=== PATIENT | female | born 1985 | race Caucasian/White ===

== ENCOUNTER → 2017-06-08 | Outpatient (CLI) | payer OTHER ==
[2017-06-08 16:04] LABS: HEMOGLOBIN 13.3 g/dL (12.2-16.2); LYMPH # 1.6 K/mm3 (0.7-4.5); LYMPH % 18.5 % (10-50.0)
[2017-06-08 19:03] LABS: AMPHETAMINES/METAMPHETAMINES NEGATIVE ng/mL (<1000)
[2017-06-08 23:19] LABS: ABO BLOOD TYPE A; RH BLOOD TYPE POSITIVE
[2017-06-10 16:39] LABS: HIV Screen 4th Generation wRfx Non Reactive (Non Reactive)
[2017-06-12 04:36] LABS: Rapid Plasma Reagin, Quant Non Reactive (NonRea<1:1)
[2017-06-12 08:43] LABS: Rubella Antibodies, IgG <0.90 index (Immune >0.99)
[2017-06-12 10:40] LABS: HBsAg Screen Negative (Negative)
== END ==
LOC: LAB 15:10
PROVIDERS: Obstetrics & Gynecology
DX: Z36 Encounter for antenatal screening of mother (principal); Z04.8 Encounter for examination and observation for other specified reasons
CPT/HCPCS: G0432

== ENCOUNTER → 2017-08-14 | Outpatient (CLI) | payer OTHER ==
[2017-08-17 19:15] LABS: AFP Value 43.2 ng/mL; Gest. Age on Collection Date 16.0 WEEKS; Gestat. Age Based On ULTRASOUND; Insulin Dep Diabetes NO; Maternal Age At EDD 30.5 YEARS; Results REPORT
[2017-08-17 19:16] LABS: DIA MoM 0.72; DIA Value 126.75 pg/mL; DSR (Second Trimester) 1 IN 10000; Interpretation SCREEN NEGATIVE; OSBR Risk 1 IN 3810; hCG MoM 1.76; hCG Value 67319 mIU/mL; uE3 MoM 1.71; uE3 Value 1.37 ng/mL
== END ==
LOC: LAB 09:50
PROVIDERS: Obstetrics & Gynecology
DX: Z36.89 Encounter for other specified antenatal screening (principal)

== ENCOUNTER 2017-08-19 09:34 | Emergency (ER) | payer OTHER, MEDICAID ==
[~2017-08-19] VITALS: Ht 162.6 cm; Wt 72.6 kg
[2017-08-19 09:51] LABS: URINE BILIRUBIN - DIPSTICK NEGATIVE (NEG); URINE BLOOD 1+ (NEG)
--- OUTSIDE RECORDS SUMMARY | 2017-08-19 09:51 | External Medical Summary Rpt | CCD ---
Author Author , FLORECITA BERNABE Address Unknown Phone [email or web address] Care Team Providers Care Photo Engraver Name Role Phone [employer] [place] [employer], Unavailable Unavailable [employer] KELLE CAR, KELLE Unavailable Unavailable CAR [facility] Unavailable Unavailable DEPARTMENT, [facility] DEPARTMENT [facility] Unavailable Unavailable DEPARTMENT, [facility] DEPARTMENT [facility] Unavailable Unavailable CENTER, [facility]available Unavailable [facility], [facility] Unavailable Unavailable [facility], [facility] BEATTIE HOP WORKER Unavailable Unavailable [facility], BEATTIE HOP WORKER [facility] WALLACE ADAMES, Unavailable Unavailable WALLACE ADAMES GLORIA KOKI, GLORIA Unavailable Unavailable [facility], [facility] Unavailable Unavailable CENTER, [facility] DRAPER GWE, DRAPER GWE Unavailable Unavailable DRAPER, MEI, DRAPER, Unavailable Unavailable MEI SERGIO GARCIA, Unavailable Unavailable SERGIO GARCIA Purpose Continuity of Care Document - 09-21-2009 through 2016 Problems Code Diagnosis DOS Provider Status V221 SUPERVISION 05-14-2013 KELLE CAR OF OTHER NORMAL 31709 MATERNAL 03-19-2013 DRAPER GWE ANEMIA, ANTEPARTUM V061 NEED PROPH 01-02-2013 GLORIA KOKI VAC W/COMB DIPHTH-TETA NUS-PERTUSS VAC 6989 UNSPECIFIED 12-17-2012 GLORIA KOKI PRURITIC DISORDER 37624 DEHYDRATION 11-20-2012 GLORIA KOKI 72745 NAUSEA WITH 11-14-2012 GLORIA KOKI VOMITING V825 SCREENING 11-01-2012 [facility] POISONING&O DEPARTMENT THER CONTAMINATI ON V220 SUPERVISION 10-29-2012 GLORIA KOKI OF NORMAL FIRST V2511 ENC FOR 07-22-2010 [facility]ION [facility] E CONTRACEPT DEVICE 61728 PREMATURE 05-28-2010 [facility] RUPTURE [facility] DELIVERED 73767 FIRST-DEGRE 05-28-2010 [facility] PERINEAL [facility] WITH DELIVERY 90329 OTH SPEC 05-26-2010 [facility] [place] [facility] TL PROBS MGMT MOTH DELIV V270 OUTCOME OF 05-26-2010 [facility] LIVEBORN V286 SCREENING 04-22-2010 [facility] [place] [address] OTHER 04-07-2010 [facility] MALAISE AND PRIMARY FATIGUE [facility]ARE CENTER V771 SCREENING 03-08-2010 [facility] FOR PRIMARY DIABETES CARE MELLITUS CENTERINC V2881 ENCOUNTER 01-11-2010 [facility] FOR PRIMARY ANATOMIC CARE SURVEY CENTERINC 25916 POOR 10-06-2009 [facility] GROWTH MGMT ROSANGELA TEAGUE MOTH PINC ANTPRTM COND/COMP 98197 THREATENED 09-28-2009 [facility] PREMATURE [facility] LABOR CARE ANTEPARTUM CENTERINC 91471 THREATENED 09-24-2009 [facility] MEDICAL LITTLE HOCKING 6201 CORPUS 09-22-2009 W[facility] Lockwood LUTEUM CYST ROSANGELA TEAGUE OR PINC HEMATOMA 2662 OTHER 09-21-2009 [facility] B-COMPLEX HEALTH DEFICIENCIE DEPARTMENT S 23888 OTHER SPEC 09-21-2009 [facility] HEMORRHAGE [facility]IMARY EARLY CARE CENTERINC ANTEPARTUM Medications Na ND Rx Da Fi Fi Am Da Di Ph RX Ph St me C No te ll ll ou ys ag ar # ys at rm s nt no ma ic us Or Da si cy ia de te s n re d [place] 50 11 11 0 1. 1 MA 60 RE Ac RE 41 -0 -0 00 YS 32 DM ti NA 90 1- 1- 0 37 ON ve 42 20 20 LL 9 D SY 10 [address] 1 OB LI EM SS GY A N A FA IL LY HE AL TH AM 00 11 11 0 10 10 LE 61 KE Ac OX 78 -0 -0 0. WI 14 ET ti IC 16 1- 1- 00 S 88 ON ve IL 15 20 20 0 CO 0 LI 74 10 10 UN CA N 6 TY SE 40 Y 0 ME R MG IM /5 AR Y ML CA RE RAMIREZ SP CN TR RA 65 09 10 2 50 30 LE 61 KE Ac NI 16 -2 -2 .0 WI 12 ET ti TI 20 4- 5- 00 S 65 ON ve DI 66 20 20 CO 3 NE 49 10 10 UN CA 0 TY SE 15 Y ME R MG IM /M AR L Y SY CA RU RE P CN TR MO 52 09 10 2 28 28 LE 61 SH Ac NO 54 -1 -1 .0 WI 11 OW ti NE 40 3- 2- 00 S 93 ER ve SS 24 20 20 CO 8 A 72 10 10 UN LA 28 8 TY UR A TA ME L BL IM ET AR Y CA RE CN TR RA 65 09 09 2 50 30 LE 61 KE Ac NI 16 -2 -2 .0 WI 12 ET ti TI 20 4- 4- 00 S 65 ON ve DI 66 20 20 CO 3 NE 49 10 10 UN CA 0 TY SE 15 Y ME R MG IM /M AR L Y SY CA RU RE P CN TR IB 55 09 09 1 60 20 LE 61 SH Ac UP 11 -1 -1 .0 WI 11 OW ti RO 10 3- 3- 00 S 93 ER ve FE 68 20 20 CO 7 N 40 10 10 UN LA 80 5 TY UR 0 A MG ME L IM TA AR BL Y ET CA RE CN TR MO 52 09 09 2 28 28 LE 61 SH Ac NO 54 -1 -1 .0 WI 11 OW ti NE 40 3- 3- 00 S 93 ER ve SS 24 20 20 CO 8 A 72 10 10 UN LA 28 8 TY UR A TA ME L BL IM ET AR Y CA RE CN TR 00 06 08 5 60 30 LE 61 WE Ac 67 -2 -2 .0 WI 07 BB ti 70 2- 3- 00 S 85 ve 07 20 20 CO 9 GW 00 10 10 UN EN 1 TY ME IM AR Y CA RE CN TR 00 06 07 5 60 30 LE 61 WE Ac 67 -2 -2 .0 WI 07 BB ti 70 2- 3- 00 S 85 ve 07 20 20 CO 9 GW 00 10 10 UN EN 1 TY ME IM AR Y CA RE CN TR 00 02 03 3 30 30 ME 69 WE Ac 52 -0 -0 .0 OF 71 BB ti 71 4- 6- 00 ES 42 ve 76 20 20 SI GW 03 10 10 ON EN 0 AL CA RE PH AR MA CY ME 00 01 02 01 60 30 LE 60 WE Ac OM 03 -0 -1 .0 WI 98 BB ti ET 21 7- 1- 00 S 34 ve RI 71 20 20 CO 8 GW UM 10 10 10 EN 1 ME 20 IM 0 AR MG Y CA CA RE PS UL CT E R IN C 00 01 02 01 30 30 LE 60 WE Ac 52 -0 -1 .0 WI 98 BB ti 71 5- 1- 00 S 20 ve 76 20 20 CO 8 GW 03 10 10 EN 0 ME IM AR Y CA RE CT R IN C CE 65 01 02 00 6. 3 LE 60 WE Ac PH 86 -2 -1 00 WI 99 BB ti AL 20 5- 1- 0 S 30 ve EX 01 20 20 CO 8 GW IN 90 10 10 EN 5 ME 50 IM 0 AR MG Y CA CA RE PS UL CT E R IN C 00 01 01 00 30 30 LE 60 WE Ac 52 -0 -1 .0 WI 98 BB ti 71 5- 4- 00 S 20 ve 76 20 20 CO 8 GW 03 10 10 EN 0 ME IM AR Y CA RE CT R IN C ME 00 01 01 00 60 30 LE 60 WE Ac OM 03 -0 -1 .0 WI 98 BB ti ET 21 7- 4- 00 S 34 ve RI 71 20 20 CO 8 GW UM 10 10 10 EN 1 ME 20 IM 0 AR MG Y CA CA RE PS UL CT E R IN C Results Labs Lab Lab Date Result Refere Interp Status Commen Order Detail nces retati t Range on AFP Tetra (08-14-2017 09:53) Results REPORT complet 017 ed 09:53 Serum 08-14-2 = 43.2 complet or 017 ng/mL ed plasma 09:53 alpha fetopro tein measur Serum = 1.38 complet or 017 ed plasma 09:53 alpha-1 -fetopr otein ness HCG = 04830 complet ser/gabriel 017 mIU/mL ed s 09:53 Serum 2 = 1.76 complet or 017 ed plasma 09:53 choriog onadotr opin measu Serum 2 = 1.37 complet or 017 ng/mL ed plasma 09:53 unconju gated estriol (E3 Serum 2 = 1.71 complet or 017 ed plasma 09:53 unconju gated estriol (E3 Serum 2 = complet or 017 126.75 ed plasma 09:53 pg/mL inhibin A measure ment (m Serum = 0.72 complet or 017 ed plasma 09:53 inhibin A measure ment (a Determi = 3810 complet nation 017 ed of risk 09:53 of open neural tub Trisomy = 51377 complet 21 017 ed risk 09:53 determi nation in fetus 11-28-2 = 656 complet trisomy 017 ed 21 09:53 risk determi nation base Quantit = NOT complet ative 017 INCREAS ed risk 09:53 ED assessm ent for trisomy Quantit 1 : complet ative 017 2556 ed risk 09:53 assessm ent for trisomy Interpr SCREEN complet etation 017 NEGATIV ed of 09:53 E serum or plasma second Determi = 16.0 complet nation 017 WEEKS ed of 09:53 gestati onal age Gestati ULTRASO complet onal 017 UND ed age 09:53 ULTRASO method UND L Age at = 30.5 complet deliver 017 YEARS ed y 09:53 Mother' CAUCASI complet s race 017 AN ed 09:53 CAUCASI AN L Determi = 160 complet nation 017 LB. ed of 09:53 weight Insulin NO NO L complet 017 ed depende 09:53 nt diabete s mellitu s dete Multipl NO NO L complet e 017 ed pregnan 09:53 cy Blood group antibody screen [Presence] in Serum or Plasma (06-08-2017 15:12) Blood NEGATIV NEGATIV complet group 017 E E ed antibod 15:12 y screen [Presen ce] in Serum or Plasma Rh [Type] in Blood (06-08-2017 15:12) Rh POSITIV complet [Type] 017 E ed in 15:12 Blood ABO group [Type] in Blood (06-08-2017 15:12) ABO A complet group 017 ed [Type] 15:12 in Blood Drugs identified in Urine by Screen method (06-08-2017) Ampheta NEGATIV <1000 complet mine 017 E ed [Presen ce] in Urine by Screen method 11-Hydr NEGATIV <50 complet oxy 017 E ed delta-9 tetrahy drocann abinol [Presen ce] in Unspeci fied specime n Encounters Encounter Start End Date Code Location Performer Type Date [facility] 0 [facility] 0 [facility]
--- OUTSIDE RECORDS SUMMARY | 2017-08-19 09:51 | External Medical Summary Rpt | CCD ---
Author Author , FLORECITA BERNABE Address Unknown Phone [email or web address] Care Team Providers Care Regulator Operator Name Role Phone [employer] [place] [employer], Unavailable Unavailable [employer] [email or web address] KELLE CAR, KELLE Unavailable Unavailable CAR [facility] Unavailable Unavailable DEPARTMENT, [facility] DEPARTMENT [facility] Unavailable Unavailable DEPARTMENT, [facility] DEPARTMENT [facility]available Unavailable CENTER, [facility] Unavailable [facility]available [facility], [facility] Unavailable Unavailable CARE CN[facility], [facility] INVERNESS MASCARA MOLDER Unavailable Unavailable [facility], IN[facility] MASCARA MOLDER [facility] WALLACE ADAMES, Unavailable Unavailable WALLACE ADAMES GLORIA KOKI, GLORIA Unavailable Unavailable [facility] Unavailable [facility], [facility] Unavailable Unavailable CENTER, [facility] DRAPER GWE, DRAPER GWE Unavailable Unavailable DRAPER, MEI, DRAPER, Unavailable Unavailable MEI SERGIO GARCIA, Unavailable Unavailable SERGIO GARCIA Purpose Continuity of Care Document - 09-21-2009 through 2016 Problems Code Diagnosis DOS Provider Status V221 SUPERVISION 05-14-2013 KELLE CAR OF OTHER NORMAL 07622 MATERNAL 03-19-2013 DRAPER GWE ANEMIA, ANTEPARTUM V061 NEED PROPH 01-02-2013 GLORIA KOKI VAC W/COMB DIPHTH-TETA NUS-PERTUSS VAC 6989 UNSPECIFIED 12-17-2012 GLORIA KOKI PRURITIC DISORDER 94944 DEHYDRATION 11-20-2012 GLORIA KOKI 54296 NAUSEA WITH 11-14-2012 GLORIA KOKI VOMITING V825 SCREENING 11-01-2012 [facility] CHEMICAL HEALTH POISONING&O DEPARTMENT THER CONTAMINATI ON V220 SUPERVISION 10-29-2012 GLORIA KOKI OF NORMAL FIRST V2511 ENC FOR 07-22-2010 [facility] INSERTION [facility]TRA[facility]ARE C[facility] E CONTRACEPT DEVICE 30317 PREMATURE 05-28-2010 [facility] RUPTURE [facility] DELIVERED 40249 FIRST-DEGRE 05-28-2010 [facility] PERINEAL [facility] WITH DELIVERY 94140 OTH SPEC 05-26-2010 [facility] [place] [facility] TL PROBS MGMT MOTH DELIV V270 OUTCOME OF 05-26-2010 [facility] LIVEBORN V286 SCREENING 04-22-2010 [facility] [place] [address] OTHER 04-07-2010 [facility] MALAISE AND PRIMARY FATIGUE CARE CENTER V771 SCREENING 03-08-2010 [facility] FOR PRIMARY DIABETES CARE MELLITUS CENTERINC V2881 ENCOUNTER 01-11-2010 [facility] FOR PRIMARY ANATOMIC CARE SURVEY CENTERINC 97879 POOR 10-06-2009 [facility] GROWTH MGMT ROSANGELA TEAGUE MOTH PINC ANTPRTM COND/COMP 39431 THREATENED 09-28-2009 [facility] PREMATURE [facility] LABOR CARE ANTEPARTUM CENTERINC 97655 THREATENED 09-24-2009 [facility] MEDICAL LEIGH 6201 CORPUS 09-22-2009 W[facility] Lock[facility] LUTEUM CYST ROSANGELA TEAGUE OR PINC HEMATOMA 2662 OTHER 09-21-2009 [facility] B-COMPLEX HEALTH DEFICIENCIE DEPARTMENT S 83381 OTHER SPEC 09-21-2009 [facility] HEMORRHAGE [facility] EARLY CARE CENTERINC ANTEPARTUM Medications Na ND Rx Da Fi Fi Am Da Di Ph RX Ph St me C No te ll ll ou ys ag ar # ys at rm s nt no ma ic us Or Da si cy ia de te s n re d NM 50 11 11 0 1. 1 MA 60 RE Ac RE 41 -0 -0 00 YS 32 DM ti NA 90 1- 1- 0 37 ON ve 42 20 20 LL 9 D SY 10 [address] 1 OB LI EM SS GY A N A FA NM LY HE AL TH AM 00 11 11 0 10 10 LE 61 KE Ac OX 78 -0 -0 0. WI 14 ET ti IC 16 1- 1- 00 S 88 ON ve IL 15 20 20 0 CO 0 LI 74 10 10 UN CA N 6 TY SE 40 Y 0 NV R MG IM /5 AR Y ML CA RE RAMIREZ SP CN TR RA 65 09 10 2 50 30 LE 61 KE Ac NI 16 -2 -2 .0 WI 12 ET ti TI 20 4- 5- 00 S 65 ON ve DI 66 20 20 CO 3 NE 49 10 10 UN CA 0 TY SE 15 Y NV R MG IM /M AR L Y SY CA RU RE P CN TR MO 52 09 10 2 28 28 LE 61 SH Ac NO 54 -1 -1 .0 WI 11 OW ti NE 40 3- 2- 00 S 93 ER ve SS 24 20 20 CO 8 A 72 10 10 UN LA 28 8 TY UR A TA NV L BL IM ET AR Y CA RE CN TR RA 65 09 09 2 50 30 LE 61 KE Ac NI 16 -2 -2 .0 WI 12 ET ti TI 20 4- 4- 00 S 65 ON ve DI 66 20 20 CO 3 NE 49 10 10 UN CA 0 TY SE 15 Y NV R MG IM /M AR L Y SY CA RU RE P CN TR IB 55 09 09 1 60 20 LE 61 SH Ac UP 11 -1 -1 .0 WI 11 OW ti RO 10 3- 3- 00 S 93 ER ve FE 68 20 20 CO 7 N 40 10 10 UN LA 80 5 TY UR 0 A MG NV L IM TA AR BL Y ET CA RE CN TR MO 52 09 09 2 28 28 LE 61 SH Ac NO 54 -1 -1 .0 WI 11 OW ti NE 40 3- 3- 00 S 93 ER ve SS 24 20 20 CO 8 A 72 10 10 UN LA 28 8 TY UR A TA NV L BL IM ET AR Y CA RE CN TR 00 06 08 5 60 30 LE 61 WE Ac 67 -2 -2 .0 WI 07 BB ti 70 2- 3- 00 S 85 ve 07 20 20 CO 9 GW 00 10 10 UN EN 1 TY NV IM AR Y CA RE CN TR 00 06 07 5 60 30 LE 61 WE Ac 67 -2 -2 .0 WI 07 BB ti 70 2- 3- 00 S 85 ve 07 20 20 CO 9 GW 00 10 10 UN EN 1 TY NV IM AR Y CA RE CN TR 00 02 03 3 30 30 NV 69 WE Ac 52 -0 -0 .0 OF 71 BB ti 71 4- 6- 00 ES 42 ve 76 20 20 SI GW 03 10 10 ON EN 0 AL CA RE PH AR MA CY NV 00 01 02 01 60 30 LE 60 WE Ac OM 03 -0 -1 .0 WI 98 BB ti ET 21 7- 1- 00 S 34 ve RI 71 20 20 CO 8 GW UM 10 10 10 EN 1 NV 20 IM 0 AR MG Y CA CA RE PS UL CT E R IN C 00 01 02 01 30 30 LE 60 WE Ac 52 -0 -1 .0 WI 98 BB ti 71 5- 1- 00 S 20 ve 76 20 20 CO 8 GW 03 10 10 EN 0 NV IM AR Y CA RE CT R IN C CE 65 01 02 00 6. 3 LE 60 WE Ac PH 86 -2 -1 00 WI 99 BB ti AL 20 5- 1- 0 S 30 ve EX 01 20 20 CO 8 GW IN 90 10 10 EN 5 NV 50 IM 0 AR MG Y CA CA RE PS UL CT E R IN C 00 01 01 00 30 30 LE 60 WE Ac 52 -0 -1 .0 WI 98 BB ti 71 5- 4- 00 S 20 ve 76 20 20 CO 8 GW 03 10 10 EN 0 NV IM AR Y CA RE CT R IN C NV 00 01 01 00 60 30 LE 60 WE Ac OM 03 -0 -1 .0 WI 98 BB ti ET 21 7- 4- 00 S 34 ve RI 71 20 20 CO 8 GW UM 10 10 10 EN 1 NV 20 IM 0 AR MG Y CA [...] 09:53 alpha-1 -fetopr otein ness HCG = 66706 complet ser/gabriel 017 mIU/mL ed s 09:53 [...] 09:53 of open neural tub Trisomy = 21739 complet 21 017 ed risk 09:53 determi [...] End Date Code Location Performer Type Date [facility] - 0 0 [facility] [address] [facility]
--- OUTSIDE RECORDS SUMMARY | 2017-08-19 09:52 | External Medical Summary Rpt | CCD ---
Author Author [facility]ent Organization Conduent Address Unknown Phone Unavailable Purpose Continuity of Care Document - through 2016
--- OUTSIDE RECORDS SUMMARY | 2017-08-19 09:52 | External Medical Summary Rpt | CCD ---
Demographics Preferred Language Niuean Marital Status Unknown Buddhist Affiliation Unknown Race Unknown Ethnic Group Unknown Author Author , FLORECITA BERNABE Address Unknown Phone Immunization Unable to retrieve immunization data due to connection failure with Immunization Registry. Please try again later.
--- OUTSIDE RECORDS SUMMARY | 2017-08-19 09:52 | External Medical Summary Rpt | CCD ---
Demographics Preferred Language Mexican Marital Status Unknown Rastafari Affiliation Unknown Race Unknown Ethnic Group Unknown Author Author , FLORECITA BERNABE Address Unknown Phone Immunization Unable to retrieve immunization data due to connection failure with Immunization Registry. Please try again later.
--- OUTSIDE RECORDS SUMMARY | 2017-08-19 09:53 | External Medical Summary Rpt ---
Author Author [employer], [employer] Organization [employer] Address Unknown Phone Unavailable Results AFP Tetra Observa Value Referen Units Interpr Notes Date tion ce etation Range Results REPORT No No No No Aug 14 informa informa informa informa 2017 tion in tion in tion in tion in 9:53 AM source source source source data data data data Alpha-1-F No No No Aug 14 etoprotei informati informati informati informati 2016 9:53 n on in on in on in on in AM [Mass/vol source source source source ume] in data data data data Serum or Plasma Alpha-1-F No No No No Aug 14 etoprotei informati informati informati informati 2016 9:53 n on in on in on in on in AM [Multiple source source source source of the data data data data median] adjusted in Serum or Plasma Choriogon No No No No Aug 14 adotropin informati informati informati informati 2016 9:53 on in on in on in on in AM [Units/vo source source source source lume] in data data data data Serum or Plasma Choriogon No No No Aug 14 adotropin informati informati informati informati 2016 9:53 on in on in on in on in AM [Multiple source source source source of the data data data data median] adjusted in Serum or Plasma Estriol.u No No No No Aug 14 nconjugat informati informati informati informati 2016 9:53 ed on in on in on in on in AM [Mass/vol source source source source ume] in data data data data Serum or Plasma Estriol.u No No No No Aug 14 nconjugat informati informati informati informati 2016 9:53 ed on in on in on in on in AM [Multiple source source source source of the data data data data median] adjusted in Serum or Plasma Inhibin A No No No No Aug 14 informati informati informati informati 2017 9:53 [Mass/vol on in on in on in on in AM ume] in source source source source Serum data data data data Inhibin A No No No No Aug 14 informati informati informati informati 2017 9:53 [Multiple on in on in on in on in AM of the source source source source median] data data data data adjusted in Serum Neural No No No No Aug 14 tube informati informati informati informati 2017 9:53 defect on in on in on in on in AM risk in source source source source Fetus data data data data Trisomy No No No No Aug 14 21 risk informati informati informati informati 2016 9:53 in Fetus on in on in on in on in AM source source source source data data data data Second SCREEN No No No No Aug 14 trimest NEGATIV informa informa informa informa 2017 er quad E tion in tion in tion in tion in 9:53 AM source source source source materna data data data data l screen [interp retatio n] in Serum Narrati ve Trisomy No No No No Aug 14 21 risk informati informati informati informati 2016 9:53 based on on in on in on in on in AM maternal source source source source age in data data data data Fetus Trisomy No No No No Aug 14 18 risk informati informati informati informati 2017 9:53 in Fetus on in on in on in on in AM source source source source data data data data Trisomy No No No No Aug 14 18 risk informati informati informati informati 2017 9:53 based on on in on in on in on in AM maternal source source source source age in data data data data Fetus Second SCREEN No No No No Aug 14 trimest NEGATIV informa informa informa informa 2017 er quad E tion in tion in tion in tion in 9:53 AM source source source source materna data data data data l screen [interp retatio n] in Serum Narrati ve Gestation No No No No Aug 14 al age informati informati informati informati 2017 9:53 on in on in on in on in AM source source source source data data data data Gestati ULTRASO No No No No Aug 14 onal UND informa informa informa informa 2017 age tion in tion in tion in tion in 9:53 AM method source source source source data data data data Age at No No No No Aug 14 delivery informati informati informati informati 2016 9:53 on in on in on in on in AM source source source source data data data data Mother' CAUCASI No No No No Aug 14 s race AN informa informa informa informa 2016 tion in tion in tion in tion in 9:53 AM source source source source data data data data Body No No No No Aug 14 weight informati informati informati informati 2016 9:53 on in on in on in on in AM source source source source data data data data Insulin NO No No No No Aug 14 informa informa informa informa 2017 depende tion in tion in tion in tion in 9:53 AM nt source source source source diabete data data data data s mellitu s [Presen ce] Multipl NO No No No No Aug 14 e informa informa informa informa 2017 preganc tion in tion in tion in tion in 9:53 AM y source source source source data data data data Blood group antibody screen [Presence] in Serum or Plasma Observa Value Referen Units Interpr Notes Date tion ce etation Range Blood NEGATIV NEGATIV No No No Sep 22 group E E informa informa informa 2017 antibod tion in tion in tion in 3:12 PM y source source source screen data data data [Presen ce] in Serum or Plasma Rh [Type] in Blood Observa Value Referen Units Interpr Notes Date tion ce etation Range Rh POSITIV No No No No Sep 22 [Type] E informa informa informa informa 2017 in tion in tion in tion in tion in 3:12 PM Blood source source source source data data data data ABO group [Type] in Blood Observa Value Referen Units Interpr Notes Date tion ce etation Range ABO A No No No No Sep 22 group informa informa informa informa 2017 [Type] tion in tion in tion in tion in 3:12 PM in source source source source Blood data data data data Thyrotropin [Units/volume] in Serum or Plasma Observa Value Referen Units Interpr Notes Date tion ce etation Range Thyrotrop 0.358 - uIU/ml Normal No Sep 22 in 3.740 informati 2017 3:12 [Units/vo on in PM lume] in source Serum or data Plasma CBC W Auto Differential panel in Blood Observa Value Referen Units Interpr Notes Date tion ce etation Range Basophils 0 - 0.2 K/MM3 Normal No Sep 22 informati 2016 3:12 [#/volume on in PM ] in source Blood by data Automated count Basophils 0.1 - 2.0 % Normal No Sep 22 /100 informati 2016 3:12 leukocyte on in PM s in source Blood by data Automated count Eosinophi 0.0 - 0.4 K/mm3 Normal No Sep 22 ls informati 2016 3:12 [#/volume on in PM ] in source Blood by data Automated count Eosinophi 0.1 - % Normal No Sep 22 ls/100 12.0 informati 2016 3:12 leukocyte on in PM s in source Blood by data Automated count Granulocy 1.8 - 7.8 K/mm3 Normal No Sep 22 lisa informati 2016 3:12 [#/volume on in PM ] in source Blood by data Automated count Granulocy 37.0 - % Normal No Sep 22 lisa/100 80.0 informati 2016 3:12 leukocyte on in PM s in source Blood by data Automated count Hematocri 37.0 - % Normal No Sep 22 t [Volume 47.0 informati 2016 3:12 on in PM Fraction] source of Blood data Hemoglobi 12.2 - g/dL Normal No Sep 22 n 16.2 informati 2016 3:12 [Mass/vol on in PM ume] in source Blood data Lymphocyt 0.7 - 4.5 K/mm3 Normal No Sep 22 es informati 2016 3:12 [#/volume on in PM ] in source Unspecifi data ed specimen by Automated count Lymphocyt 10 - 50.0 % Normal No Sep 22 es informati 2016 3:12 [#/volume on in PM ] in source Unspecifi data ed specimen by Automated count Erythrocy 27 - 31.2 pg Normal No Sep 22 te mean informati 2016 3:12 corpuscul on in PM ar source hemoglobi data n [Entitic mass] Erythrocy 31.8 - g/dl Normal No Sep 22 te mean 35.4 informati 2016 3:12 corpuscul on in PM ar source hemoglobi data n concentra tion [Mass/vol ume] by Automated count Erythrocy 82.2 - fl Normal No Sep 22 te mean 97.8 informati 2016 3:12 corpuscul on in PM ar volume source [Entitic data volume] by Automated count Monocytes 0.1 - 1.0 K/mm3 Normal No Sep 22 inform2016 3:12 [#/volume on in PM ] in source Blood by data Automated count Monocytes 1.7 - 9.3 % Normal No Sep 22 /100 inform2016 3:12 leukocyte on in PM s in source Blood by data Automated count Platelet 7.4 - fl Normal No Sep 22 mean 10.4 informati 2016 3:12 volume on in PM [Entitic source volume] data in Blood by Automated count Platelets 142 - 424 K/mm3 Normal No Sep 22 2016 3:12 [#/volume on in PM ] in source Blood data Erythrocy 4.2 - 5.4 M/mm3 Normal No May 22 lisa informati 2016 3:12 [#/volume on in PM ] in source Amniotic data fluid Erythrocy 11.5 - % Normal No May 22 te 17.5 informati 2016 3:12 distribut on in PM ion width source [Entitic data volume] by Automated count Leukocyte 4.8 - K/MM3 Normal No Sep 22 s 10.8 2016 3:12 [#/volume on in PM ] in source Blood data Drugs identified in Urine by Screen method Observa Value Referen Units Interpr Notes Date tion ce etation Range Positive urine drug screen samples are stored for 7 days. Contact the Lab if confirmation of positives is needed. Ampheta NEGATIV <1000 ng/mL No No Jun 08 mine E informa informa 2016 [Presen tion in tion in ce] in source source Urine data data by Screen method Barbitura <200 ng/mL No No May 22 lisa informati informati 2016 [Mass/vol on in on in ume] in source source Urine by data data Screen method Benzodiaz 200 ng/mL ng/mL No No May 22 epines informati informati 2016 [Mass/vol on in on in ume] in source source Serum or data data Plasma by Screen method Cocaine <300 ng/g No No May 22 [Mass/vol informati informati 2016 ume] in on in on in Unspecifi source source ed data data specimen Methadone <300 ng/mL No No May 22 informati informati 2016 [Mass/vol on in on in ume] in source source Unspecifi data data ed specimen Opiates <300 ng/mL No No Sep 22 [Mass/vol informati informati 2017 ume] in on in on in Unspecifi source source ed data data specimen Phencycli <25 ng/mL No No Sep 22 dine informati informati 2017 [Mass/vol on in on in ume] in source source Unspecifi data data ed specimen 11-Hydr NEGATIV <50 ng/mL No No Jun 08 oxy E informa informa 2017 delta-9 tion in tion in source source tetrahy data data drocann abinol [Presen ce] in Unspeci fied specime n
[2017-08-19 10:07] LABS: HEMOGLOBIN 12.4 g/dL (12.2-16.2); LYMPH # 1.5 K/mm3 (0.7-4.5); LYMPH % 16.6 % (10-50.0)
--- NOTE | 2017-08-19 10:55 | Emergency Room Report ---
History of Present Illness Time Seen by [id number] Presenting Problem in Triage Pt arrived:Walked Presenting Problem:PT IS 16 WEEKS . PT STARTED HAVING LOWER ABD CRAMPING AT 2300 LAST NIGHT AND LIGHT VAGINAL BLEEDING SINCE 0800 THIS MORNING. 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 N Clinical Suspician of Infection? N Mental Status: 1 - Regular (Normal Baseline) Sepsis Risk:Low Sepsis Risk Have you (or family members/close friends) recently traveled outside the [place]? N If Yes, where/when: Have you had exposure to infectious disease within the past month? N TB? Other? Specify: Source patient, RN notes reviewed, old records Exam Limitations no limitations Comment 16 weeks with crampy abd pain with no fever or vomiting and some spotting Cardiac Chest Pain Chest pain indicative of cardiac No Timing/Duration this morning Severity moderate ALLERGIES Coded Allergies: No Known Drug Allergies (NKDA) (08/19/17) History Medical History General CAD? No Angina: No IA: No Hypertension? No Hyperlipidemia? No CHF? No DVT? No PE? No COPD? No Asthma? No Anemia? No GERD? No Gastric ulcers? No GI Bleed? No Hernia? No Thyroid Problems? No Hypothyroidism? No CVA? No Seizures? No Diabetes? No Renal Insuffiency? No End Stage Renal Disease? No UTI? No Stones? No BPH? No GB Disease: No Nephritic Syndrome? No Asplenia? No Hepatitis? No Arthritis? No Migraines? No Cataracts? No Glaucoma? No MRSA? No HIV? No TB? No Anxiety? No Depression? No Cancer? No More? 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 Respiratory denies cough, denies shortness of breath, denies wheezing Cardiovascular denies chest pain, denies syncope Gastrointestinal denies abdominal pain, denies diarrhea, denies vomiting Genitourinary see HPI, abnormal vaginal bleeding, frequency, hematuria. denies: discharge. Musculoskeletal denies joint pain, denies neck pain Skin denies rash Psychiatric/Neurological denies headache, denies seizure Physical Exam Vital Signs Vital Signs Date Time Temp Pulse Resp B/P Pulse O2 O2 Flow FiO2 Ox Delivery Rate 08/19 1011 90 18 112/60 98 08/19 0946 98.1 102 18 124/76 97 - WBC >12,000 or <4,000 or 10% bands? 2 or more SIRS Criteria Met? B/P:112/60 MAP:92 Creatinine >2.0? UA output<0.5ml/kg/hr for 2 hrs? Platelet count >100,000? Lactate >2.0mmol/1? INR >1.2 or PTT > than 60 sec? Evidence of Organ Dysfunction? Provider documented clinical suspician of infection? N Sepsis Criteria Count: 1 Sepsis Risk: Low Sepsis Risk General Appearance no apparent distress Eye Exam - bilateral eye PERRL, bilateral eye EOMI Ear, Nose, Throat normal ENT inspection Neck supple Respiratory Status No: respiratory distress. Cardiovascular regular rate/rhythm Peripheral Pulses Pulses normal Yes Gastrointestinal soft, no organomegaly, no pulsatile mass, no guarding, no rebound, gravid Back no CVA tenderness Extremities normal inspection Strength 4 Upper Ext (L), 4 Upper Ext (R), 4 Lower Ext (L), 4 Lower Ext (R) Neurologic alert, 3rd pressman II-XII nml as tested, no motor/sensory deficits Reflexes Reflexes normal No Mental status normal mood/affect Skin intact Medical Decision Making LABS/Meds/Orders Pt receiving controlled substance in ED? No Results/Orders Laboratory Tests 08/19/17 0945: Sodium 137, Potassium 3.4 L, Chloride 103, Carbon Dioxide 26, BUN 8, Creatinine 0.6, Estimated Creat Clear 157, Estimated GFR (MDRD) 117, Glucose 109 H, Calcium 9.4, Total Bilirubin 0.2, AST 27, ALT 42, Alkaline Phosphatase 85, Total Protein 7.6, Albumin 3.1 L, Globulin 4.5 H, Albumin/Globulin Ratio 0.7 L, Beta HCG, Quant 34522, WBC 9.1, RBC 4.03 L, Hgb 12.4, Hct 35.7 L, MCV 88.8, RDW 13.0, Plt Count 342, MPV 7.5, Gran % 79.3, Gran # 7.2, Lymphocytes % 16.6, Monocytes % 3.0, Eosinophils % 1.0, Basophils % 0.1, Lymphocytes # 1.5, Monocytes # 0.3, Eosinophils # 0.1, Basophils # 0.0, PUBS MCHC 34.6, MCH 30.7 08/19/17 0941: Urine Color YELLOW, Urine Appearance CLEAR, Urine pH 5.5, Ur Specific [place] <= 1.005, Urine Protein NEGATIVE, Urine Ketones NEGATIVE, Urine Blood 1+ H, Urine Nitrate NEGATIVE, Urine Bilirubin NEGATIVE, Urine Urobilinogen 0.2, Ur Leukocyte Esterase NEGATIVE, Urine RBC OCC, Urine WBC OCC, Ur Squamous Epith Cells 5-10, Urine Bacteria TRACE, Urine Glucose NEGATIVE Orders Procedure Date/time Status US PREG > 14 WEEKS SNGL/GEST 08/19 940 Active URINALYSIS/COMPLETE 08/19 939 Complete URINE 08/19 939 Complete CBC WITH AUTO DIFF 08/19 939 Complete CHEM 12 PROFILE 08/19 939 Complete BETA-HCG, QUANT 08/19 939 Complete XRAY/CT/US XRAY/CT/US Ultrasound abdomen US Interpretation by discussed w/radiologist US results normal Departure Departure Time of Disposition 1137 Disposition DC Home or Self Care(routine) Clinical Impression Primary Impression: Qualifiers: Weeks of gestation: 16 weeks Qualified Code: Z3A.16 - 16 weeks gestation of Condition STABLE Referrals Manuel TEAGUE,Brian Locke Patient Instructions DI for -- Discomforts and Remedies Additional Instructions call dr metzger in am Discharge Counseling Counseled pt/family regarding diagnosis, test results, follow up needs ED Critical Care Critical Care No at 1135
--- NOTE | 2017-08-19 10:55 | Emergency Room Report ---
History of Present Illness Time Seen by [id number] Presenting Problem in Triage Pt arrived:Walked Presenting Problem:PT IS 16 WEEKS . PT STARTED HAVING LOWER ABD CRAMPING AT 2300 LAST NIGHT AND LIGHT VAGINAL BLEEDING SINCE 0800 THIS MORNING. 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 N Clinical Suspician of Infection? N Mental Status: 1 - Regular (Normal Baseline) Sepsis Risk:Low Sepsis Risk Have you (or family members/close friends) recently traveled outside the [place]? N If Yes, where/when: Have you had exposure to infectious disease within the past month? N TB? Other? Specify: Source patient, RN notes reviewed, old records Exam Limitations no limitations Comment 16 weeks with crampy abd pain with no fever or vomiting and some spotting Cardiac Chest Pain Chest pain indicative of cardiac No Timing/Duration this morning Severity moderate ALLERGIES Coded Allergies: No Known Drug Allergies (NKDA) (08/19/17) History Medical History General CAD? No Angina: No MS: No Hypertension? No Hyperlipidemia? No CHF? No DVT? No PE? No COPD? No Asthma? No Anemia? No GERD? No Gastric ulcers? No GI Bleed? No Hernia? No Thyroid Problems? No Hypothyroidism? No CVA? No Seizures? No Diabetes? No Renal Insuffiency? No End Stage Renal Disease? No UTI? No Stones? No BPH? No GB Disease: No Nephritic Syndrome? No Asplenia? No Hepatitis? No Arthritis? No Migraines? No Cataracts? No Glaucoma? No MRSA? No HIV? No TB? No Anxiety? No Depression? No Cancer? No More? 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 Respiratory denies cough, denies shortness of breath, denies wheezing Cardiovascular denies chest pain, denies syncope Gastrointestinal denies abdominal pain, denies diarrhea, denies vomiting Genitourinary see HPI, abnormal vaginal bleeding, frequency, hematuria. denies: discharge. Musculoskeletal denies joint pain, denies neck pain Skin denies rash Psychiatric/Neurological denies headache, denies seizure Physical Exam Vital Signs Vital Signs Date Time Temp Pulse Resp B/P Pulse O2 O2 Flow FiO2 Ox Delivery Rate 08/19 1011 90 18 112/60 98 08/19 0946 98.1 102 18 124/76 97 - WBC >12,000 or <4,000 or 10% bands? 2 or more SIRS Criteria Met? B/P:112/60 MAP:92 Creatinine >2.0? UA output<0.5ml/kg/hr for 2 hrs? Platelet count >100,000? Lactate >2.0mmol/1? INR >1.2 or PTT > than 60 sec? Evidence of Organ Dysfunction? Provider documented clinical suspician of infection? N Sepsis Criteria Count: 1 Sepsis Risk: Low Sepsis Risk General Appearance no apparent distress Eye Exam - bilateral eye PERRL, bilateral eye EOMI Ear, Nose, Throat normal ENT inspection Neck supple Respiratory Status No: respiratory distress. 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 No Results/Orders Laboratory Tests 08/19/17 0945: Sodium 137, Potassium 3.4 L, Chloride 103, Carbon Dioxide 26, BUN 8, Creatinine 0.6, Estimated Creat Clear 157, Estimated GFR (MDRD) 117, Glucose 109 H, Calcium 9.4, Total Bilirubin 0.2, AST 27, ALT 42, Alkaline Phosphatase 85, Total Protein 7.6, Albumin 3.1 L, Globulin 4.5 H, Albumin/Globulin Ratio 0.7 L, Beta HCG, Quant 57063, WBC 9.1, RBC 4.03 L, Hgb 12.4, Hct 35.7 L, MCV 88.8, RDW 13.0, Plt Count 342, MPV 7.5, Gran % 79.3, Gran # 7.2, Lymphocytes % 16.6, Monocytes % 3.0, Eosinophils % 1.0, Basophils % 0.1, Lymphocytes # 1.5, Monocytes # 0.3, Eosinophils # 0.1, Basophils # 0.0, PUBS MCHC 34.6, MCH 30.7 08/19/17 0941: Urine Color YELLOW, Urine Appearance CLEAR, Urine pH 5.5, Ur Specific [place] <= 1.005, Urine Protein NEGATIVE, Urine Ketones NEGATIVE, Urine Blood 1+ H, Urine Nitrate NEGATIVE, Urine Bilirubin NEGATIVE, Urine Urobilinogen 0.2, Ur Leukocyte Esterase NEGATIVE, Urine RBC OCC, Urine WBC OCC, Ur Squamous Epith Cells 5-10, Urine Bacteria TRACE, Urine Glucose NEGATIVE Orders Procedure Date/time Status US PREG > 14 WEEKS SNGL/GEST 08/19 940 Active URINALYSIS/COMPLETE 08/19 939 Complete URINE 08/19 939 Complete CBC WITH AUTO DIFF 08/19 939 Complete CHEM 12 PROFILE 08/19 939 Complete BETA-HCG, QUANT 08/19 939 Complete XRAY/CT/US XRAY/CT/US Ultrasound abdomen US Interpretation by discussed w/radiologist US results normal Departure Departure Time of Disposition 1137 Disposition DC Home or Self Care(routine) Clinical Impression Primary Impression: Qualifiers: Weeks of gestation: 16 weeks Qualified Code: Z3A.16 - 16 weeks gestation of Condition STABLE Referrals Manuel TEAGUE,Brian Locke Patient Instructions DI for -- Discomforts and Remedies Additional Instructions call dr metzger in am Discharge Counseling Counseled pt/family regarding diagnosis, test results, follow up needs ED Critical Care Critical Care No at 1136
[2017-08-19 11:47] VITALS: BP 122/75
--- NOTE | 2017-08-19 12:52 | RADIOLOGY REPORT PS360 ---
US PREG > 14 WEEKS SNGL/GEST: INDICATION: BLEEDING, 16 WEEKS PREG with bleeding dark spotting this morning. No cramping ORDERING PHYSICIAN: Angelia Roy MD PATIENT AGE: 32 years TECHNIQUE: ultrasound transabdominal scanning.. Focus study due to bleeding 16 weeks. COMPARISON: No previous relevant studies. FINDINGS: Single viable intrauterine gestation. . Variable position. Mainly cephalic but unchanged. Cervix long closed cervix measures 4.4 cm length.... Posterior placenta extends to the fundus. No previa. No abruption evident. Adequate to generous amniotic fluid. . Limited survey performed and was unremarkable on the submitted images as in PACS. No discrete anomalies , encountered nor identified on survey imaging by technologist. mw Active fetus.Three-vessel cord with satisfactory umbilical cord insertion. Survey images brain & ventricles. & posterior fossa unremarkable Images in region of Face and neck survey unremarkable. Diaphragm and chest views unremarkable. 4 chamber heart imaged. Cine loop included. LVOT imaged Abdomen: Both kidneys noted and unremarkable. Stomach noted and satisfactory. Spine: Brief overview Survey of the spine unremarkable on submitted images. Both arms and legs noted. Appears to be a male fetus Maternal adnexa: No gross incidental findings encountered. Measurements:------- Average ultrasound age 17 weeks 4 days. Gestational Age 16 weeks 5 days....... Based on LMP 04/24/2017 Estimated due date by ultrasound age 502/02/2018. Estimated weight 205 +/- 30 grams. BPD = 17 week 4 day OFD = 17 week 4 day HC = 17 weeks 0 day AC = 18 week 2 day FL = 17 week 2 day Heart Rate = 150 BPM HC/AC = 1.06.(1.09-1.26.) CI = 78.(70-86%). FL/BPD is 63. Percent FL/AC is 19%. IMPRESSION: 17 week weeks 4 days average ultrasound age variable position. Cervix long closed. Posterior placenta no previa No significant findings to account current spotting. Limited Anatomical survey unremarkable & WNL
== END 2017-08-19 11:48 | disposition home or self-care (01) ==
LOC: ER 09:34
PROVIDERS: Emergency Medicine
DX: O46.92 Antepartum hemorrhage, unspecified, second trimester (principal); Z3A.16 16 weeks gestation of pregnancy